=== PATIENT | female | born 1990 | race American Indian/Alaskan Native ===

== ENCOUNTER 2018-06-10 10:07 | Emergency (ER) | payer MEDICAID ==
[2018-06-10 10:07] VITALS: BMI 27.8
[2018-06-10 10:29] VITALS: RESP 18
--- NOTE | 2018-06-10 10:52 | ED PDOC ---
Arrival/HPI - General Chief Complaint: Cough, Cold, Congestion Time Seen by Provider: 06/10/18 10:35 Historian: Patient - History of Present Illness Narrative History of Present Illness (Text): 06/10/18 10:52 A 28 year old male, whose past medical history includes hypertension and asthma, presents to the emergency department complaining of cough for 1 month. Patient reports having difficulty breathing recently. States she has not gone to see a doctor for evaluation. Patient denies any fever, chills, nausea, vomiting, diarrhea, abdominal pain, or any other complaints at this time. PMD: Dr. Gallardo Time/Duration: Other (1 month of coughing) Past Medical History - Provider Review Nursing Documentation Reviewed: Yes - Infectious Disease Hx of Infectious Diseases: None - Tetanus Immunization Tetanus Immunization: Unknown - Cardiac Hx Hypertension: Yes Hx Peripheral Edema: Yes (FROM FRACTURE) - Pulmonary Hx Asthma: Yes - Neurological Hx Seizures: Yes (FEBRILE) - HEENT Hx HEENT Disorder: No - Renal Hx Renal Disorder: No - Endocrine/Metabolic Hx Endocrine Disorders: Yes Hx Systemic Lupus Erythematosus: Yes - Hematological/Oncological Hx Blood Disorders: Yes Hx Blood Transfusions: Yes (2011) - Integumentary Hx Dermatological Disorder: Yes (lupus rash) - Musculoskeletal/Rheumatological Hx Arthritis: Yes Hx Rheumatoid Arthritis: Yes (SLE '05) - Gastrointestinal Hx Gastrointestinal Disorders: Yes Hx Gastroesophageal Reflux: Yes - Genitourinary/Gynecological Hx Genitourinary Disorders: No Hx Urinary Tract Infection: Yes - Psychiatric Hx Psychophysiologic Disorder: No Hx Substance Use: No - Surgical History Hx Joint Replacement: Yes (b/l hip replacement) Hx Orthopedic Surgery: Yes (L ankle fusion) - Anesthesia Hx Anesthesia: Yes Hx Anesthesia Reactions: No Hx Malignant Hyperthermia: No - Suicidal Assessment Feels Threatened In Home Enviroment: No Family/Social History - Physician Review Nursing Documentation Reviewed: Yes Family/Social History: No Known Family HX Smoking Status: Never Smoked Hx Alcohol Use: No Hx Substance Use: No Hx Substance Use Treatment: No Allergies/Home Meds Allergies/Adverse Reactions: Allergies latex Allergy (Intermediate, Verified 06/10/18 10:29) RASH diphenhydramine HCl [From Benadryl] Allergy (Mild, Verified 06/10/18 10:29) RASH seafood Allergy (Intermediate, Uncoded 06/10/18 10:29) RASH Home Medications: Home Meds Medication Instructions Recorded Confirmed RX: Albuterol HFA [Ventolin HFA 90 1 dose INH BID PRN 02/19/16 03/15/18 mcg/actuation (8 g)] Ergocalciferol (Vitamin D2) 2,000 unit PO DAILY 12/02/17 03/15/18 [Vitamin D2] Hydroxychloroquine Sulfate 200 mg PO BID 12/02/17 03/15/18 [Plaquenil] Multivitamin [Multivitamins] 1 each PO DAILY 12/02/17 03/15/18 Mycophenolate [Cellcept] 500 mg PO BID 12/02/17 03/15/18 Pantoprazole Sodium [Protonix] 40 mg PO DAILY 12/02/17 03/15/18 RX: Ferrous Sulfate 325 mg PO BID 12/02/17 03/15/18 amLODIPine [Norvasc] 5 mg PO DAILY 12/02/17 03/15/18 predniSONE [Prednisone] 10 mg PO DAILY 12/02/17 03/15/18 Review of Systems - Physician Review All systems were reviewed & negative as marked: Yes - Review of Systems Constitutional: absent: Fevers, Night Sweats Respiratory: SOB, Cough Gastrointestinal: absent: Abdominal Pain, Diarrhea, Nausea, Vomiting Physical Exam Vital Signs Reviewed: Yes Vital Signs Temp Pulse Resp BP Pulse Ox 06/10/18 10:27 98.6 F 83 18 132/87 98 Temperature: Afebrile Blood Pressure: Normal Pulse: Regular Respiratory Rate: Normal Appearance: Positive for: Well-Appearing, Non-Toxic, Comfortable Pain Distress: None Mental Status: Positive for: Alert and Oriented X 3 - Systems Exam Head: Present: Atraumatic, Normocephalic Pupils: Present: PERRL Extroacular Muscles: Present: EOMI Conjunctiva: Present: Normal Mouth: Present: Moist Mucous Membranes Neck: Present: Normal Range of Motion Respiratory/Chest: Present: Clear to Auscultation, Good Air Exchange. No: Respiratory Distress, Accessory Muscle Use Cardiovascular: Present: Regular Rate and Rhythm, Normal S1, S2. No: Murmurs Abdomen: No: Tenderness, Distention, Peritoneal Signs Back: Present: Normal Inspection Upper Extremity: Present: Normal Inspection. No: Cyanosis, Edema Lower Extremity: Present: Normal Inspection. No: Edema Neurological: Present: GCS=15, CN II-XII Intact, Speech Normal Skin: Present: Warm, Dry, Normal Color. No: Rashes Psychiatric: Present: Alert, Oriented x 3, Normal Insight, Normal Concentration Medical Decision Making ED Course and Treatment: 06/10/18 10:55 Impression: 28 year old female with cough. Physical exam is benign. Plan: -- Chest X-ray -- POC Urine -- Reassess and disposition Progress Notes: 06/10/2018 11:23 Chest X-ray IMPRESSION: No active pulmonary disease. Dictator: Luda Albarran MD 06/10/18 13:09 pt sleeping in nad. lungs cta. no wheezing. suspect post viral tussis. advise oupt fu. - RAD Interpretation Radiology Orders: 06/10/18 10:40 CXR [CHEST TWO VIEWS (PA/LAT)] [RAD] Stat - Scribe Statement The provider has reviewed the documentation as recorded by the Scribe Arabella Bergeron Provider Scribe Attestation: All medical record entries made by the Scribe were at my direction and personally dictated by me. I have reviewed the chart and agree that the record accurately reflects my personal performance of the history, physical exam, medical decision making, and the department course for this patient. I have also personally directed, reviewed, and agree with the discharge instructions and disposition. Disposition/Present on Arrival - Present on Arrival Any Indicators Present on Arrival: No History of DVT/PE: No History of Uncontrolled Diabetes: No Urinary Catheter: No History of Decub. Ulcer: No History Surgical Site Infection Following: Orthopedic Procedures - Disposition Have Diagnosis and Disposition been Completed?: Yes Diagnosis: Cough Disposition: HOME/ ROUTINE Disposition Time: 11:00 Condition: STABLE Discharge Instructions (ExitCare): Cough in Adults Additional Instructions: return to er with worseningsymptoms or concerns. Referrals: [facility] [Outside] - [place] up with [place] [facility] [place] - Follow up with primary Forms: [employer] ([place])
--- NOTE | 2018-06-10 11:26 | RAD ---
HISTORY: Cough COMPARISON: No prior. TECHNIQUE: Chest PA and lateral FINDINGS: LINES AND TUBES: None. LUNG AND PLEURA: The lungs are well inflated and clear. No pleural effusion or pneumothorax. HEART AND MEDIASTINUM: The heart is not enlarged. No aortic atherosclerotic calcification present. The hilar and mediastinal contours are within normal limits. SKELETAL STRUCTURES: The bony structures are within normal limits for the patient's age. VISUALIZED UPPER ABDOMEN: Normal. OTHER FINDINGS: None. IMPRESSION: No active pulmonary disease.
[2018-06-10 11:58] VITALS: BP 138/89; PULSE 88; TEMP 98.2; O2SAT 99
== END 2018-06-10 12:10 | disposition home or self-care (01) ==
LOC: ED 10:07
DX: R05 Cough (principal); I10 Essential (primary) hypertension; J45.909 Unspecified asthma, uncomplicated